=== PATIENT | male | born 1990 | race Caucasian/White ===

== ENCOUNTER 2023-03-04 13:28 | Emergency (ER) | payer BC, OTHER ==
[2023-03-04 13:43] VITALS: BP 134/88; PULSE 104; RESP 18; TEMP 98.6; BMI 28.9
[2023-03-04] MEDS ORDERED: predniSONE 20 MG TABLET (UD) PO ONE (14:52)
[2023-03-04] MEDS ORDERED: predniSONE 20 MG TABLET (UD) ONE (15:00)
== END 2023-03-04 15:08 | disposition home or self-care (01) ==
LOC: JERFT 13:28
DX: R21 Rash and other nonspecific skin eruption (principal); L29.9 Pruritus, unspecified; L23.7 Allergic contact dermatitis due to plants, except food
CPT/HCPCS: 99283-25